=== PATIENT | male | born 1955 | race Caucasian/White ===

== ENCOUNTER 2017-06-08 15:38 | Inpatient (IN) | payer OTHER ==
[2017-06-08] MEDS: KETOROLAC 15 MG INJ IV (18:02)
[2017-06-08] MEDS: morphine 2 MG INJ IV (18:02)
[2017-06-08 18:06] LABS: ADD MAN DIFF? NO
[2017-06-08 18:08] LABS: WHITE BLOOD COUNT 8.2 10^3/ul (4.8-10.8)
[2017-06-08 18:08] LABS: BASOPHILS % 0.4 % (0.0-2.0); EOSINOPHILS # 0.1 10^3/ul (0.0-0.5); HEMATOCRIT 45.5 % (42.0-52.0); HEMOGLOBIN 14.8 g/dl (14.0-18.0); LYMPHOCYTES # 1.8 10^3/ul (0.8-2.9); LYMPHOCYTES % 22.4 % (15.0-51.0); MEAN CORPUSCULAR HEMOGLOBIN 29.5 pg (29.0-33.0); MEAN CORPUSCULAR HGB CONC 32.5 g/dl (32.0-37.0); MEAN CORPUSCULAR VOLUME 90.6 fl (82.0-101.0); MEAN PLATELET VOLUME 9.3 fl (7.4-10.4); MONOCYTE # 1.2 10^3/ul (0.3-0.9); PLATELET COUNT 269 10^3/UL (140-415); RED BLOOD COUNT 5.02 10^6/ul (4.70-6.10); RED CELL DISTRIBUTION WIDTH 16.4 % (11.5-14.5)
[2017-06-08 18:30] LABS: ANION GAP 18 (8-16); BLOOD UREA NITROGEN 22 mg/dl (7-20); CALCIUM 9.9 mg/dl (8.4-10.2); CARBON DIOXIDE 28 mmol/L (21-31); CHLORIDE 100 mmol/L (97-110); CREATINE KINASE 33 IU/L (23-200); CREATININE 0.89 mg/dl (0.61-1.24); GLUCOSE 77 mg/dl (70-220); POTASSIUM 4.5 mmol/L (3.5-5.1); SODIUM 141 mmol/L (135-144)
[2017-06-08 18:42] LABS: B-TYPE NATRIURETIC PEPTIDE 2860 PG/ML (0-125); TROPONIN-I 0.032 ng/ml (0.00-0.12)
[2017-06-08 18:43] LABS: CK INDEX 2.2
[2017-06-08 18:51] LABS: CK-MB 0.74 ng/ml (0.0-2.4)
[2017-06-08] MEDS: FUROSEMIDE 40 MG INJ IV (20:05)
[2017-06-08] MEDS ORDERED: ONDANSETRON 4 MG INJ IV (20:30)
[2017-06-08] MEDS ORDERED: ACETAMINOPHEN 325 MG TAB PO (20:30)
[2017-06-08] MEDS: HYDROCODONE/APAP (5/325) TAB PO (22:58)
[2017-06-08] MEDS: ASPIRIN 81 MG TAB PO (23:35)
[2017-06-09] MEDS ORDERED: ACETAMINOPHEN 325 MG TAB PO (03:00)
[2017-06-09] MEDS ORDERED: ONDANSETRON 4 MG INJ IV (03:00)
[2017-06-09] MEDS: FUROSEMIDE 20 MG TAB PO ×2 (06:46→17:09)
[2017-06-09 07:43] LABS: ADD MAN DIFF? NO
[2017-06-09 07:48] LABS: BASOPHILS % 0.5 % (0.0-2.0); EOSINOPHILS # 0.1 10^3/ul (0.0-0.5); EOSINOPHILS % 2.2 % (0.0-7.0); HEMATOCRIT 38.5 % (42.0-52.0); HEMOGLOBIN 12.6 g/dl (14.0-18.0); LYMPHOCYTES # 1.6 10^3/ul (0.8-2.9); LYMPHOCYTES % 27.4 % (15.0-51.0); MEAN CORPUSCULAR HEMOGLOBIN 29.6 pg (29.0-33.0); MEAN CORPUSCULAR HGB CONC 32.7 g/dl (32.0-37.0); MEAN CORPUSCULAR VOLUME 90.4 fl (82.0-101.0); MEAN PLATELET VOLUME 9.4 fl (7.4-10.4); MONOCYTE # 0.9 10^3/ul (0.3-0.9); MONOCYTES % 15.9 % (0.0-11.0); NEUTROPHIL # 3.2 10^3/ul (1.6-7.5); NEUTROPHILS % 53.8 % (39.0-77.0); PLATELET COUNT 208 10^3/UL (140-415); RED BLOOD COUNT 4.26 10^6/ul (4.70-6.10); RED CELL DISTRIBUTION WIDTH 16.3 % (11.5-14.5)
[2017-06-09 07:48] LABS: WHITE BLOOD COUNT 5.9 10^3/ul (4.8-10.8)
[2017-06-09 08:06] LABS: CREATINE KINASE 34 IU/L (23-200)
[2017-06-09 08:18] LABS: CK INDEX 2.1; TROPONIN-I 0.041 ng/ml (0.00-0.12)
[2017-06-09 08:20] LABS: CK-MB 0.73 ng/ml (0.0-2.4)
[2017-06-09 08:29] LABS: ANION GAP 12 (8-16); BLOOD UREA NITROGEN 28 mg/dl (7-20); CALCIUM 9.3 mg/dl (8.4-10.2); CARBON DIOXIDE 28 mmol/L (21-31); CHLORIDE 106 mmol/L (97-110); GLUCOSE 95 mg/dl (70-220); POTASSIUM 3.7 mmol/L (3.5-5.1); SODIUM 142 mmol/L (135-144)
[2017-06-09] MEDS: POTASSIUM CHLORIDE (SR) 20 MEQ TAB PO ×2 (09:55→12:27)
[2017-06-09] MEDS: morphine 2 MG INJ IV ×3 (09:56→20:02)
[2017-06-09 11:36] LABS: CHOL/HDL RATIO 3.8 RATIO; HDL CHOLESTEROL 24 mg/dl (30-78); LDL CHOLESTEROL,CALCULATED 58 mg/dl; TRIGLYCERIDES 53 mg/dl (0-149)
[2017-06-09 11:36] LABS: CHOLESTEROL 93 mg/dl (100-200)
[2017-06-09] MEDS: MAGNESIUM SULFATE 2 GM/50 ML 50 ML IVPB (12:28)
[2017-06-09] MEDS: METOPROLOL 25 MG TAB PO ×2 (12:35→20:05)
[2017-06-09] MEDS ORDERED: LEVALBUTEROL (NEB) 0.63 MG/3 ML AMP HHN (14:30)
[2017-06-09] MEDS: LEVALBUTEROL (NEB) 0.63 MG/3 ML AMP HHN (19:34)
[2017-06-10] MEDS: LEVALBUTEROL (NEB) 0.63 MG/3 ML AMP HHN ×4 (02:17→19:48)
[2017-06-10] MEDS: FUROSEMIDE 20 MG TAB PO (05:56)
[2017-06-10] MEDS: SPIRONOLACTONE 25 MG TAB PO (08:25)
[2017-06-10] MEDS: POTASSIUM CHLORIDE (SR) 20 MEQ TAB PO (08:26)
[2017-06-10] MEDS: LISINOPRIL 5 MG TAB PO (08:26)
[2017-06-10] MEDS: METOPROLOL 25 MG TAB PO ×2 (08:27→20:10)
[2017-06-10] MEDS: FUROSEMIDE 40 MG INJ IV ×2 (08:28→17:25)
[2017-06-10 09:33] LABS: ADD MAN DIFF? NO
[2017-06-10 09:40] LABS: BASOPHILS % 0.6 % (0.0-2.0); EOSINOPHILS # 0.2 10^3/ul (0.0-0.5); EOSINOPHILS % 2.4 % (0.0-7.0); HEMATOCRIT 43.1 % (42.0-52.0); HEMOGLOBIN 14.1 g/dl (14.0-18.0); LYMPHOCYTES # 1.9 10^3/ul (0.8-2.9); LYMPHOCYTES % 28.4 % (15.0-51.0); MEAN CORPUSCULAR HEMOGLOBIN 29.3 pg (29.0-33.0); MEAN CORPUSCULAR HGB CONC 32.7 g/dl (32.0-37.0); MEAN CORPUSCULAR VOLUME 89.6 fl (82.0-101.0); MEAN PLATELET VOLUME 9.1 fl (7.4-10.4); MONOCYTE # 0.8 10^3/ul (0.3-0.9); MONOCYTES % 11.2 % (0.0-11.0); NEUTROPHIL # 3.8 10^3/ul (1.6-7.5); NEUTROPHILS % 57.3 % (39.0-77.0); PLATELET COUNT 247 10^3/UL (140-415); RED BLOOD COUNT 4.81 10^6/ul (4.70-6.10)
[2017-06-10 09:40] LABS: WHITE BLOOD COUNT 6.7 10^3/ul (4.8-10.8)
[2017-06-10 10:18] LABS: ANION GAP 14 (8-16); BLOOD UREA NITROGEN 19 mg/dl (7-20); CALCIUM 9.9 mg/dl (8.4-10.2); CARBON DIOXIDE 30 mmol/L (21-31); CHLORIDE 99 mmol/L (97-110); CREATININE 0.82 mg/dl (0.61-1.24); GLUCOSE 121 mg/dl (70-220); POTASSIUM 4.1 mmol/L (3.5-5.1); SODIUM 139 mmol/L (135-144)
[2017-06-10] MEDS: HYDROCODONE/APAP (5/325) TAB PO ×2 (13:40→18:28)
[2017-06-10] MEDS ORDERED: SPIRONOLACTONE 25 MG TAB PO (20:00)
[2017-06-11] MEDS: LEVALBUTEROL (NEB) 0.63 MG/3 ML AMP HHN ×4 (01:03→19:54)
[2017-06-11] MEDS: FUROSEMIDE 40 MG INJ IV ×2 (06:33→17:46)
[2017-06-11 08:19] LABS: ADD MAN DIFF? NO
[2017-06-11 08:20] LABS: BASOPHILS % 0.6 % (0.0-2.0); EOSINOPHILS # 0.2 10^3/ul (0.0-0.5); EOSINOPHILS % 3.4 % (0.0-7.0); HEMATOCRIT 46.4 % (42.0-52.0); HEMOGLOBIN 14.8 g/dl (14.0-18.0); LYMPHOCYTES % 37.7 % (15.0-51.0); MEAN CORPUSCULAR HEMOGLOBIN 28.8 pg (29.0-33.0); MEAN CORPUSCULAR HGB CONC 31.9 g/dl (32.0-37.0); MEAN CORPUSCULAR VOLUME 90.4 fl (82.0-101.0); MEAN PLATELET VOLUME 8.9 fl (7.4-10.4); MONOCYTE # 0.6 10^3/ul (0.3-0.9); MONOCYTES % 11.7 % (0.0-11.0); NEUTROPHIL # 2.4 10^3/ul (1.6-7.5); NEUTROPHILS % 46.6 % (39.0-77.0); PLATELET COUNT 270 10^3/UL (140-415); RED BLOOD COUNT 5.13 10^6/ul (4.70-6.10); RED CELL DISTRIBUTION WIDTH 15.9 % (11.5-14.5)
[2017-06-11 08:20] LABS: WHITE BLOOD COUNT 5.2 10^3/ul (4.8-10.8)
[2017-06-11] MEDS: POTASSIUM CHLORIDE (SR) 20 MEQ TAB PO (09:23)
[2017-06-11] MEDS: SPIRONOLACTONE 25 MG TAB PO (09:23)
[2017-06-11] MEDS: METOPROLOL 25 MG TAB PO ×2 (09:23→21:00)
[2017-06-11] MEDS: HYDROCODONE/APAP (5/325) TAB PO ×4 (09:24→18:36)
[2017-06-11] MEDS: LISINOPRIL 5 MG TAB PO (09:28)
[2017-06-11 09:31] LABS: ANION GAP 17 (8-16); BLOOD UREA NITROGEN 33 mg/dl (7-20); CALCIUM 10.2 mg/dl (8.4-10.2); CARBON DIOXIDE 31 mmol/L (21-31); CHLORIDE 99 mmol/L (97-110); GLUCOSE 99 mg/dl (70-220); MAGNESIUM 1.9 mg/dl (1.7-2.5); POTASSIUM 4.7 mmol/L (3.5-5.1); SODIUM 142 mmol/L (135-144)
[2017-06-11 21:35] LABS: MAGNESIUM 1.9 mg/dl (1.7-2.5)
[2017-06-11] MEDS: ZOLPIDEM 5 MG TAB PO (21:52)
[2017-06-12] MEDS: LEVALBUTEROL (NEB) 0.63 MG/3 ML AMP HHN ×4 (02:00→20:34)
[2017-06-12] MEDS: FUROSEMIDE 40 MG INJ IV ×2 (05:38→17:59)
[2017-06-12 07:19] LABS: ADD MAN DIFF? NO
[2017-06-12 07:23] LABS: WHITE BLOOD COUNT 7.2 10^3/ul (4.8-10.8)
[2017-06-12 07:23] LABS: BASOPHILS % 0.3 % (0.0-2.0); EOSINOPHILS # 0.3 10^3/ul (0.0-0.5); EOSINOPHILS % 3.9 % (0.0-7.0); HEMOGLOBIN 13.8 g/dl (14.0-18.0); LYMPHOCYTES # 2.2 10^3/ul (0.8-2.9); LYMPHOCYTES % 31.1 % (15.0-51.0); MEAN CORPUSCULAR HEMOGLOBIN 29.1 pg (29.0-33.0); MEAN CORPUSCULAR HGB CONC 32.9 g/dl (32.0-37.0); MEAN CORPUSCULAR VOLUME 88.6 fl (82.0-101.0); MEAN PLATELET VOLUME 9.2 fl (7.4-10.4); MONOCYTE # 0.8 10^3/ul (0.3-0.9); NEUTROPHIL # 3.8 10^3/ul (1.6-7.5); NEUTROPHILS % 53.6 % (39.0-77.0); PLATELET COUNT 284 10^3/UL (140-415); RED BLOOD COUNT 4.74 10^6/ul (4.70-6.10); RED CELL DISTRIBUTION WIDTH 15.6 % (11.5-14.5)
[2017-06-12 07:49] LABS: ANION GAP 17 (8-16); BLOOD UREA NITROGEN 37 mg/dl (7-20); CALCIUM 9.8 mg/dl (8.4-10.2); CARBON DIOXIDE 27 mmol/L (21-31); CHLORIDE 100 mmol/L (97-110); CREATININE 0.92 mg/dl (0.61-1.24); GLUCOSE 95 mg/dl (70-220); POTASSIUM 4.6 mmol/L (3.5-5.1); SODIUM 139 mmol/L (135-144)
[2017-06-12] MEDS: SPIRONOLACTONE 25 MG TAB PO (08:54)
[2017-06-12] MEDS: POTASSIUM CHLORIDE (SR) 20 MEQ TAB PO (08:54)
[2017-06-12] MEDS: METOPROLOL 25 MG TAB PO ×2 (08:55→20:26)
[2017-06-12] MEDS: LISINOPRIL 5 MG TAB PO (08:55)
[2017-06-12] MEDS: HYDROCODONE/APAP (5/325) TAB PO ×2 (08:56→09:00)
[2017-06-12] MEDS: ZOLPIDEM 5 MG TAB PO (20:23)
[2017-06-13] MEDS: LEVALBUTEROL (NEB) 0.63 MG/3 ML AMP HHN ×2 (01:20→08:38)
[2017-06-13] MEDS: FUROSEMIDE 40 MG INJ IV (05:51)
[2017-06-13] MEDS: SPIRONOLACTONE 25 MG TAB PO (08:22)
[2017-06-13] MEDS: POTASSIUM CHLORIDE (SR) 20 MEQ TAB PO (08:22)
[2017-06-13] MEDS: METOPROLOL 25 MG TAB PO (08:23)
[2017-06-13] MEDS: LISINOPRIL 5 MG TAB PO (08:23)
[2017-06-13 11:03] LABS: B-TYPE NATRIURETIC PEPTIDE 788 PG/ML (0-125)
[2017-06-14] MEDS ORDERED: FUROSEMIDE 40 MG TAB PO (06:00)
== END 2017-06-13 10:55 | disposition left against medical advice (07) | DRG 293 ==
LOC: MS4 20:24 → FTE 15:38
DX: I11.0 Hypertensive heart disease with heart failure (principal); I27.20 Pulmonary hypertension, unspecified; J44.9 Chronic obstructive pulmonary disease, unspecified; I50.43 Acute on chronic combined systolic (congestive) and diastolic (congestive) heart failure; I07.1 Rheumatic tricuspid insufficiency; I34.0 Nonrheumatic mitral (valve) insufficiency; I49.1 Atrial premature depolarization; I44.4 Left anterior fascicular block; B19.20 Unspecified viral hepatitis C without hepatic coma; F17.200 Nicotine dependence, unspecified, uncomplicated
CPT/HCPCS: 36415; 71045; 71046; 80048; 80061; 82550; 82553; 83735; 83880; 84484; 85025; 85651; 93005; 93306; 94640; 94664; 96374; 96375; 99285-25